=== PATIENT | male | born 1995 | race Hispanic/Latino ===

== ENCOUNTER 2019-02-22 07:32 | Day surgery (SDC) | payer OTHER ==
[2019-02-21 14:11] VITALS: BMI 22.4
[2019-02-22] MEDS ORDERED: Midazolam HCl 2 mg/2 ml Vial ONE (09:20)
[2019-02-22] MEDS ORDERED: Fentanyl 100 MCG/2 ML VIAL ONE ×2 (09:58→11:04)
[2019-02-22] MEDS ORDERED: Hydrocodone-Acetamin 15 ML UDCUP ONE (12:04)
--- NOTE | 2019-02-22 13:44 | OP ---
DATE OF PROCEDURE: 02/22/2019 PREOPERATIVE DIAGNOSES: Chronic tonsillitis, recurrent tonsillitis. POSTOPERATIVE DIAGNOSES: Chronic tonsillitis, recurrent tonsillitis. PROCEDURE PERFORMED: Tonsillectomy over 12 years of age. DESCRIPTION OF PROCEDURE: After consent was obtained, the patient was identified, brought to the operating room, and placed on the operating table in the supine position. General endotracheal anesthesia and intravenous access was obtained and we proceeded with positioning the patient for oropharyngeal surgery. Oropharyngeal exposure was obtained with a Shital-Rainer mouth gag after a head drape was placed and secured with a towel clip. The Shital-Rainer mouth gag was then suspended from the Chavez tray and palatal elevation was achieved with a red rubber catheter. The right tonsil was addressed first. We used a curved Allis to grasp the tonsil and retract it medially as an anterior pillar incision was made with a #12 blade. The retrotonsillar fascial plane was then established and blunt dissection was performed with the suction cautery. Blood vessels were anticipated, identified, and cauterized as they were encountered. Ultimately, dissection was carried to the posterior tonsillar pillar mucosa which was incised hemostatically, as well as the base of tongue connection. The tonsil was then passed off as a specimen and bleeding points within the tonsillar bed were cauterized under direct visualization. We subsequently turned our attention to the contralateral side, where using a similar technique, a near identical procedure was performed. Again, the tonsil was grasped and retracted medially with a curved Allis as an anterior pillar incision was made with a #12 blade. The retrotonsillar fascial plane was established and while the anterior pillar was retracted medially, the hemostatic blunt dissection of the tonsil with a suction cautery was performed with blood vessels anticipated, identified, and cauterized as they were encountered. Again, dissection continued to the base of tongue and posterior tonsillar pillar mucosa which was incised in a hemostatic fashion. The tonsillar beds were then carefully inspected and bleeding points were identified and cauterized with a suction cautery. After this portion of the procedure, hemostasis was completely obtained. The patient's oral cavity was copiously irrigated with iced saline and subsequently suctioned. We then used the red rubber catheter to suction the gastric contents and the patient was subsequently aroused, awakened, and extubated without difficulty and transported to the recovery room in stable condition. There were no complications. Job ID: [id number]
[2019-02-22] MEDS ORDERED: PROPOFOL 200 MG/20 ML VIAL ONE (16:25)
[2019-02-22] MEDS ORDERED: Rocuronium Bromide 10 MG/ML (10ML VIAL) ONE (16:25)
[2019-02-22] MEDS ORDERED: Dexamethasone 20 MG/5 ML VIAL ONE (16:25)
[2019-02-22] MEDS ORDERED: Lidocaine 1% PF 5 ML VIAL ONE (16:25)
[2019-02-22] MEDS ORDERED: Ondansetron PF 4 MG/2 ML Vial ONE (16:25)
[2019-02-22] MEDS ORDERED: Ketorolac Tromethamine 30 MG/ML VIAL ONE (16:25)
[2019-02-22] MEDS ORDERED: Glycopyrrolate 0.2 MG/ML 5 ML SYRINGE ONE (16:25)
== END 2019-02-22 12:34 | disposition home or self-care (01) ==
LOC: SDC 07:32
PROVIDERS: ATTEND Specialist
PROC: 0CTPXZZ Resection of Tonsils, External Approach (ICD-10-PCS; principal; 2019-02-22)
DX: J35.01 Chronic tonsillitis (principal); J02.9 Acute pharyngitis, unspecified
CPT/HCPCS: 88304; J1100; J1885; J2001; J2250; J2405; J2704; J3010

== ENCOUNTER 2019-06-22 09:20 | Emergency (ER) | payer OTHER ==
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
--- NOTE | 2019-06-22 11:06 | CT ---
CT HEAD NONCONTRAST: Date: 06/22/19 INDICATION: New onset right eye pain. FINDINGS: There is abnormal added density of the preseptal soft tissues on the right, interposed between the me dial aspect of the right globe and the right nasal soft tissues. A rounded density within thickened d ermal tissues is present, measuring approximately 17 mm in diameter. No acute intracranial hemorrhage , mass effect, midline shift, or ventriculomegaly. IMPRESSION: Abnormal right preseptal mass-like density with associated soft tissue prominence. Recommend correlat ion with physical exam in this regard. POS: AMARILIS
--- NOTE | 2019-06-22 11:08 | CT ---
FACIAL BONES CT WITHOUT CONTRAST: Date: 06/22/19 INDICATION: Right eye pain, swelling. FINDINGS: There is an abnormal focal mass-like density of the medial right preseptal soft tissues, approximatel y 17 mm in diameter, with associated overlying soft tissue thickening of the right periorbital and na ree soft tissues. There is no encroachment upon retrobulbar soft tissues identified. The globe is int act by noncontrast imaging. There is no evidence of a displaced orbital wall fracture. Leftward nasal septal deviation with associated nasal septal spur is present. Retention cyst formation of the right maxillary sinus is present. There is mild mucosal thickening of the paranasal sinuses. No acute flui d level. IMPRESSION: Abnormal mass-like density of the medial right preseptal soft tissues with associated soft tissue swe lling. This could relate to a soft tissue mass, or alternatively could relate to trauma, pending clin ical presentation and findings on physical exam. As necessary, continued imaging follow-up may be obt ained. POS: AMARILIS
== END 2019-06-22 12:58 | disposition home or self-care (01) ==
LOC: ERS 09:20
DX: S00.11XA Contusion of right eyelid and periocular area, initial encounter (principal); S80.12XA Contusion of left lower leg, initial encounter; S00.31XA Abrasion of nose, initial encounter; V43.52XA Car driver injured in collision with other type car in traffic accident, initial encounter
CPT/HCPCS: 70450; 70486